=== PATIENT | male | born 1955 | race Caucasian/White ===

== ENCOUNTER 2016-11-28 17:48 | Emergency (ER) | payer OTHER ==
--- NOTE | 2016-11-28 18:23 | UC ---
Palpitation/Dysrhythmia HP - History of Current Complaint Stated Complaint: PT STATES"IRREGULAR HEARTBEAT" Time Seen by Provider: 11/28/16 18:16 Hx Obtained From: Patient Onset/Duration: Sudden Onset - Was taking home blood pressure. Home machine noted irregular. Has not felt any symptoms., Still Present, Worse Since - unknown. Brand new blood pressure machine. Severity Currently: None Character: Irregular - according to home blood pressure machine. Aggravating Factor(s): Nothing Alleviating Factor(s): Nothing Associated Signs & Symptoms: Negative: Lightheadedness, Syncope, Chest Pain, Shortness of Breath, Diaphoresis, Nausea - Risk Factors Cardiac: Hypertension Atrial Fibrillation: Hypertension - Allergy/Home Medications Allergies/Adverse Reactions: Allergies Allergy/AdvReac Type Severity Reaction Status Date / Time Vancomycin Allergy Unknown Verified 11/28/16 18:19 Reaction Details Home Medications: Home Medications Aspirin [Aspirin 81 MG TAB] 81 mg PO DAILY 11/28/16 [History Confirmed 11/28/16] Carvedilol TAB* [Coreg TAB*] 12.5 mg PO BID 11/28/16 [History Confirmed 11/28/16 ] Clonidine HCl [Catapres 0.1 MG TAB] 0.1 mg PO BID 11/28/16 [History Confirmed ] Desvenlafaxine Succinate [Pristiq] 2 tab PO DAILY 11/28/16 [History Confirmed ] FLUoxetine CAP* [PROzac CAP*] 40 mg PO DAILY 11/28/16 [History Confirmed ] Glimepiride [Amaryl] 4 mg PO DAILY 11/28/16 [History Confirmed 11/28/16] Naltrexone [Vivitrol] 380 mg IM Q28D 11/28/16 [History Confirmed 11/28/16] Ropinirole TAB* [Requip TAB*] 0.5 mg PO BEDTIME 11/28/16 [History Confirmed 04/04] PMH/Surg Hx/FS Hx/Imm Hx Cardiovascular History: Hypertension - Surgical History Surgical History: None - Family History Known Family History: Positive: Hypertension - Social History Occupation: Employed Full-time Lives: With Family Alcohol Use: None Substance Use Type: None Smoking Status (MU): Former Smoker Review of Systems All Other Systems Reviewed And Are Negative: Yes Physical Exam Triage Information Reviewed: Yes Appearance: Well-Appearing, No Pain Distress, Well-Nourished Vital Signs Reviewed: Yes Eyes: Positive: Conjunctiva Clear Neck exam: Normal Respiratory Exam: Normal Cardiovascular: Positive: RRR - Frequent premature beats. Musculoskeletal Exam: Normal Neurological Exam: Normal Psychological Exam: Normal Skin Exam: Normal Palpitations Course/Dx - Differential Dx/Diagnosis Differential Diagnosis/HQI/PQRI: Medication Induced, Mitral Valve Prolapse, Paroxymal SVT Provider Diagnoses: Supraventricular bigeminy. Discharge - Discharge Plan Condition: Stable Disposition: HOME Patient Education Materials: Premature Atrial Contractions (ED) Referrals: Amando Gay DO [Primary Care Provider] - 3 Days (Recheck EKG.)
[2016-11-28 18:32] VITALS: BP 166/92
== END 2016-11-28 19:05 | disposition home or self-care (01) ==
LOC: UCCORT 17:48
DX: I47.1 Supraventricular tachycardia (principal); I10 Essential (primary) hypertension; Z88.1 Allergy status to other antibiotic agents; Z87.891 Personal history of nicotine dependence
CPT/HCPCS: 93005; 99212; G0463